=== PATIENT | male | born 1940 | race Caucasian/White ===

== ENCOUNTER → 2016-10-18 | Outpatient (CLI) | payer MEDICARE, OTHER ==
[~2016-10-18] MED LIST: ADVAIR 250-501 EACH IH; ADVAIR DIS1 PUFF/DO1 IH; DULERA 200/58.8 GM IH; HCTZ12.5 MG PO; KLOR-CON M2020 ME1 PO; LEVAQUIN DPS500 MG PO; LYRICA75 MG PO; MIRALAX PACKET17 GM PO; NEURONTIN DPS600 MG PO; NORVASC2.5 MG PO; PRILOSEC DPS20 MG PO; REQUIP1 MG PO; SENOKOT DPS8.6 MG PO; SYNTHROID DP0.175 MG PO; SYNTHROID175 MCG PO; TYLENOL DPS325 MG PO; ULTRAM DPS50 MG PO; UROXATRAL10 MG PO; VITAMIN D400 UNI2 PO
== END | disposition home or self-care (01) ==
LOC: RESC 12:49 → RAD.S 13:00 → RESC 13:00 → RAD.S 14:00
DX: J44.9 Chronic obstructive pulmonary disease, unspecified (principal); R91.8 Other nonspecific abnormal finding of lung field

== ENCOUNTER → 2016-11-12 | Outpatient (CLI) | payer MEDICARE, OTHER | END | disposition home or self-care (01) | LOC: PTH.S 10:45 | DX: G62.9 Polyneuropathy, unspecified (principal) ==